=== PATIENT | female | born 2000 | race Caucasian/White ===

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

== ENCOUNTER 2020-07-20 23:35 | Emergency (ER) | payer MEDICAID ==
[~2020-07-20] VITALS: Ht 157.5 cm; Wt 95.5 kg
[2020-07-20 23:43] VITALS: BP 130/72; TEMP 100.4
[2020-07-21 00:21] LABS: ALANINE AMINOTRANSFERASE 25 U/L (4-34); ALBUMIN 4.2 gm/dL (3.5-5.0); ALKALINE PHOSPHATASE 92 U/L (50-136); ANION GAP 5 mmol/L (7-16); AST,SGOT 26 U/L (15-37); BILIRUBIN,TOTAL 0.6 mg/dL (0.0-1.0); BLOOD UREA NITROGEN 9 mg/dL (7-17); CALCIUM 9.1 mg/dL (8.4-10.2); CARBON DIOXIDE 25 mmol/L (22-30); CHLORIDE 107 mmol/L (98-107); CREATININE, serum 0.81 (0.52-1.25); GLUCOSE 105 mg/dL (74-106); POTASSIUM 3.5 mmol/L (3.4-5.0); SODIUM 137 mmol/L (137-145); TOTAL PROTEIN 7.3 gm/dL (6.4-8.2)
[2020-07-21 00:23] LABS: BASO # 0.1 (0.0-0.2); BASO % 0.6 % (0.0-2.0); EOS # 0.2 (0.0-0.7); EOS % 1.7 % (0-4.0); GRAN # 10.5 (1.4-6.5); HEMATOCRIT 43.8 % (35.0-45.0); HEMOGLOBIN 14.5 g/dl (12.0-15.0); LYMPH # 1.2 (1.2-3.4); LYMPH % 9.6 % (20.0-51.0); MEAN CELL VOLUME 88 fl (80.0-95.0); MEAN CORPUSCULAR HEMOGLOBIN 29 pg (26.0-32.0); MEAN CORPUSCULAR HGB CONC 33 g/dl (33.0-37.0); MEAN PLATELET VOLUME 10.3 fl (7.4-10.4); MONO # 0.7 (0.1-0.6); MONO % 5.6 % (1.7-9.3); PLATELET COUNT 317 K/mm3 (130-400); REDCELL DISTRIBUTION WIDTH-CV 12.6 % (11.5-14.5)
[2020-07-21 00:34] LABS: TROPONIN-I < 0.012 ng/mL (0.000-0.035)
[2020-07-21] MEDS ORDERED: PREDNISONE20 MG PO (02:46)
[2020-07-21] MEDS ORDERED: VENTOLIN0.09 MG IH (02:46)
[2020-07-21 02:56] VITALS: PULSE 97
== END 2020-07-21 02:56 | disposition home or self-care (01) ==
LOC: COL.ER 23:35
PROVIDERS: Nurse Practitioner Family
DX: R06.02 Shortness of breath (principal); J45.909 Unspecified asthma, uncomplicated; Z79.52 Long term (current) use of systemic steroids
CPT/HCPCS: J2930; J7030

== ENCOUNTER 2020-08-16 12:09 | Emergency (ER) | payer MEDICAID ==
[~2020-08-16] VITALS: Ht 157.5 cm; Wt 93.2 kg
[~2020-08-16 12:09] MED LIST changes: +VENTOLIN0.09 MG IH
[2020-08-16 12:16] VITALS: TEMP 98.3
[2020-08-16 13:10] VITALS: BP 118/70; PULSE 70
== END 2020-08-16 13:10 | disposition home or self-care (01) ==
LOC: COL.ER 12:09
DX: T23.212A Burn of second degree of left thumb (nail), initial encounter (principal); F17.200 Nicotine dependence, unspecified, uncomplicated; X15.3XXA Contact with hot saucepan or skillet, initial encounter; Y92.59 Other trade areas as the place of occurrence of the external cause; Y99.0 Civilian activity done for income or pay

== ENCOUNTER 2020-10-06 11:55 | Emergency (ER) | payer MEDICAID ==
[~2020-10-06] VITALS: Ht 157.5 cm; Wt 89.1 kg
[2020-10-06 12:12] VITALS: BP 125/83; TEMP 98.7
[2020-10-06 12:50] LABS: COLLECTION METHOD CLEAN CATCH
[2020-10-06 13:07] LABS: MUCOUS Present /lpf; PH 5 (5-8); URINE APPEARANCE Hazy; URINE BACTERIA Rare /hpf; URINE BILIRUBIN Negative (NEGATIVE); URINE BLOOD 3+ (NEGATIVE); URINE COLOR Yellow; URINE GLUCOSE Negative (NEGATIVE); URINE KETONE Negative (NEGATIVE); URINE LEUKOCYTE ESTERASE 2+ (NEGATIVE); URINE NITRATE Negative (NEGATIVE); URINE PROTEIN(semi-quant) Negative (NEGATIVE); URINE RBC >50 /hpf; URINE UROBILINOGEN Negative (NEGATIVE)
[2020-10-06 13:13] LABS: BASO # 0.1 (0.0-0.2); BASO % 0.9 % (0.0-2.0); EOS # 0.2 (0.0-0.7); EOS % 2.5 % (0-4.0); GRAN # 4.5 (1.4-6.5); GRAN % 70.5 % (42.2-75.2); HEMATOCRIT 41.7 % (35.0-45.0); LYMPH # 1.1 (1.2-3.4); LYMPH % 17.1 % (20.0-51.0); MEAN CELL VOLUME 86 fl (80.0-95.0); MEAN CORPUSCULAR HEMOGLOBIN 29 pg (26.0-32.0); MEAN CORPUSCULAR HGB CONC 34 g/dl (33.0-37.0); MEAN PLATELET VOLUME 10.1 fl (7.4-10.4); MONO # 0.6 (0.1-0.6); MONO % 8.8 % (1.7-9.3); PLATELET COUNT 270 K/mm3 (130-400); RED BLOOD COUNT 4.83 M/mm3 (4.10-5.30); REDCELL DISTRIBUTION WIDTH-CV 12.9 % (11.5-14.5)
[2020-10-06 13:23] LABS: ALANINE AMINOTRANSFERASE 23 U/L (4-34); ALBUMIN 4.5 gm/dL (3.5-5.0); ALKALINE PHOSPHATASE 93 U/L (50-136); ANION GAP 8 mmol/L (7-16); AST,SGOT 32 U/L (15-37); BILIRUBIN,TOTAL 0.6 mg/dL (0.0-1.0); BLOOD UREA NITROGEN 6 mg/dL (7-17); CALCIUM 9.3 mg/dL (8.4-10.2); CARBON DIOXIDE 22 mmol/L (22-30); CHLORIDE 109 mmol/L (98-107); GLUCOSE 99 mg/dL (74-106); POTASSIUM 3.8 mmol/L (3.4-5.0); SALICYLATE 1.5 mg/dL; SODIUM 139 mmol/L (137-145); TOTAL PROTEIN 7.8 gm/dL (6.4-8.2)
[2020-10-06 13:24] LABS: ACETAMINOPHEN < 10 ug/mL (10-30); ALCOHOL(ethanol),MEDICAL < 10 mg/dL
[2020-10-06 14:01] LABS: TRICYCLIC ANTIDEPRESS URINE NEGATIVE
[2020-10-06 18:43] VITALS: PULSE 85
== END 2020-10-06 18:43 | disposition home or self-care (01) ==
LOC: COL.ER 11:55
PROVIDERS: Nurse Practitioner Primary Care
DX: T74.21XA Adult sexual abuse, confirmed, initial encounter (principal); R45.851 Suicidal ideations; Y07.9 Unspecified perpetrator of maltreatment and neglect

== ENCOUNTER 2021-01-01 21:10 | Emergency (ER) | payer SELFPAY ==
[~2021-01-01] VITALS: Ht 157.5 cm; Wt 92.3 kg
[2021-01-01 21:13] VITALS: BP 122/68; PULSE 67; TEMP 98.6
== END 2021-01-01 22:28 | disposition home or self-care (01) ==
LOC: COL.ER 21:10
DX: S99.922A Unspecified injury of left foot, initial encounter (principal); J45.909 Unspecified asthma, uncomplicated; M41.9 Scoliosis, unspecified; F17.200 Nicotine dependence, unspecified, uncomplicated; Z79.52 Long term (current) use of systemic steroids; V03.10XA Pedestrian on foot injured in collision with car, pick-up truck or van in traffic accident, initial encounter; Y99.0 Civilian activity done for income or pay

== ENCOUNTER 2021-07-05 17:44 | Emergency (ER) | payer SELFPAY ==
[~2021-07-05] VITALS: Ht 157.5 cm; Wt 90.9 kg
[2021-07-05 17:58] VITALS: TEMP 98.5
[2021-07-05 19:17] VITALS: BP 121/88; PULSE 91
[2021-07-05] MEDS ORDERED: CRUTCHES MC (19:21)
== END 2021-07-05 19:17 | disposition home or self-care (01) ==
LOC: COL.ER 17:44
DX: S93.602A Unspecified sprain of left foot, initial encounter (principal); R55 Syncope and collapse; Z91.040 Latex allergy status; W22.8XXA Striking against or struck by other objects, initial encounter

== ENCOUNTER 2021-09-06 13:55 | Emergency (ER) | payer SELFPAY ==
[~2021-09-06] VITALS: Ht 157.5 cm; Wt 92.3 kg
[~2021-09-06 13:55] MED LIST changes: +CRUTCHES MC
[2021-09-06 14:14] VITALS: BP 111/78; PULSE 98; TEMP 98.3
== END 2021-09-06 14:55 | disposition left against medical advice (07) ==
LOC: COL.ER 13:55
DX: R53.81 Other malaise (principal)

== ENCOUNTER 2021-10-07 00:59 | Emergency (ER) | payer SELFPAY ==
[~2021-10-07] VITALS: Ht 157.5 cm; Wt 92.3 kg
[2021-10-07 01:00] VITALS: TEMP 98.8
[2021-10-07 01:39] LABS: COLLECTION METHOD CLEAN CATCH
[2021-10-07 01:40] LABS: BASO # 0.1 K/mm3 (0.0-0.2); BASO % 0.7 % (0.0-2.0); EOS # 0.2 K/mm3 (0.0-0.7); GRAN # 7.5 K/mm3 (1.4-6.5); GRAN % 68.1 % (42.2-75.2); HEMOGLOBIN 14.7 g/dl (12.5-16.0); LYMPH # 2.5 K/mm3 (1.2-3.4); LYMPH % 22.3 % (20.0-51.0); MEAN CELL VOLUME 84 fl (80.0-100.0); MEAN CORPUSCULAR HEMOGLOBIN 29 pg (27-31); MEAN CORPUSCULAR HGB CONC 34 g/dl (33.0-37.0); MEAN PLATELET VOLUME 9.7 fl (7.4-10.4); MONO # 0.7 K/mm3 (0.1-0.6); MONO % 6.6 % (1.7-9.3); PLATELET COUNT 312 K/mm3 (130-400); RED BLOOD COUNT 5.12 M/mm3 (4.10-5.30); REDCELL DISTRIBUTION WIDTH-CV 12.3 % (11.5-14.5)
[2021-10-07 01:47] LABS: PH 5.5 (5.0-8.5); URINE APPEARANCE Clear (CLEAR/HAZY); URINE BLOOD 2+ (NEGATIVE); URINE COLOR Yellow (YELLOW); URINE GLUCOSE Negative (NEGATIVE); URINE KETONE Negative (NEGATIVE); URINE NITRATE Negative (NEGATIVE); URINE PROTEIN(semi-quant) Negative (NEGATIVE)
[2021-10-07 01:59] LABS: BILIRUBIN,TOTAL 0.6 mg/dL (0.2-1.2); CALCIUM 9.6 mg/dL (8.4-10.2); CREATININE, serum 0.72 mg/dL (0.57-1.11); POTASSIUM 3.8 mmol/L (3.5-4.5); TOTAL PROTEIN 7.5 gm/dL (6.2-8.1)
[2021-10-07] MEDS ORDERED: ZOFRAN ODT4 MG PO (03:23)
[2021-10-07 03:28] LABS: SQUAMOUS EPITHELIAL 0-2 /hpf (0-10); URINE BACTERIA None Seen /hpf (NONE SEEN); URINE RBC 0-2 /hpf (0-2)
[2021-10-07] MEDS ORDERED: TORADOL 10MG TA10 MG PO (03:57)
[2021-10-07 04:05] VITALS: BP 124/79; PULSE 94
== END 2021-10-07 04:05 | disposition home or self-care (01) ==
LOC: COL.ER 00:59
PROVIDERS: Nurse Practitioner Primary Care
DX: K52.9 Noninfective gastroenteritis and colitis, unspecified (principal); F17.200 Nicotine dependence, unspecified, uncomplicated; Z90.49 Acquired absence of other specified parts of digestive tract; Z91.040 Latex allergy status; Z32.02 Encounter for pregnancy test, result negative; Z20.822 Contact with and (suspected) exposure to COVID-19
CPT/HCPCS: J1885; J2405; J7030; Q9967

== ENCOUNTER 2023-11-05 04:09 | Emergency (ER) | payer SELFPAY ==
[~2023-11-05] VITALS: Ht 157.5 cm; Wt 89.5 kg
[~2023-11-05 04:09] MED LIST changes: +TORADOL 10MG TA10 MG PO; +ZOFRAN ODT4 MG PO
[2023-11-05] MEDS ORDERED: dexAMETHasone 10 MG/ML VIAL PO ONE (04:30)
[2023-11-05] MEDS ORDERED: Ketorolac 15 MG/ML VIAL IM ONE (04:30)
[2023-11-05] MEDS ORDERED: ZITHROMAX500 M2 PO (04:40)
[2023-11-05] MEDS ORDERED: Azithromycin 250 MG TAB PO ONE (04:45)
[2023-11-05 04:49] VITALS: BP 125/77; PULSE 91; TEMP 99.2
== END 2023-11-05 04:49 | disposition home or self-care (01) ==
LOC: COL.ER 04:09
DX: J02.9 Acute pharyngitis, unspecified (principal); Z91.040 Latex allergy status; Z88.0 Allergy status to penicillin
CPT/HCPCS: J1100; J1885